=== PATIENT | female | born 1940 | race Caucasian/White ===

== ENCOUNTER 2018-03-04 01:43 | Observation (INO) ==
[2018-03-04] MEDS ORDERED: Naloxone 0.4 MG/ML INJ IVP PRN (01:53)
[2018-03-04] MEDS ORDERED: Nitroglycerin 0.4 MG TAB.SUBL SL PRN (01:58)
--- NOTE | 2018-03-04 02:03 | Internal Med History&Physical ---
Date of Encounter: 03/05/18 Time of Encounter: 02:01 Internal Medicine - H&P: HPI Chief complaint: Palpatations History of present illness: Ms. Lund is a 77 year old female with a past medical history of diabetes, hypertension, hyperlipidemia and hypothyroidism who presents with a chief complaint of palpitations. Patient states she was at home earlier this evening and felt her heart racing shortly after laying down. She did not actually check her heart rate but felt it was in the 160s based on how fast it was beating. Symptoms were associated with one episode of vomiting. However, patient denied any chest pain, diaphoresis, shortness of breath, dizziness or lightheadedness. She reports taking 2 baby aspirin and her blood pressure medication. However, given that symptoms do not improve, she subsequently reported to [facility]. She was found to be normotensive with an initial heart rate of 107. Initial EKG showed normal sinus rhythm with a ventricular rate of 97, with ST and T-wave changes in the inferior and lateral leads. Initial troponin was 0.096. Repeat troponin was 0.1. Labs were also notable for elevated creatinine of 1.64 with a baseline of 1.2. Patient received 500 mL of fluids. Patient was also noted to have a low magnesium 1.2 and received 2 g. Patient received aspirin and was started on a heparin drip due to concern for an NSTEMI. Patient is a nonsmoker and does not drink alcohol. Patient denies any significant family history of coronary artery disease. Past Med Surg Social Fam HX - Past Medical History Medical history: diabetes, hyperlipidemia, hypertension - Family History Mother Hx Family Respiratory Disorders: Yes Father History Unknown: Yes Internal Medicine - H&P: Meds GlipiZIDE 10 mg PO BID 03/04/18 [History] Lisinopril 10 mg PO BID 03/04/18 [History] Synthroid 50 mcg PO DAILY 03/04/18 [History] metFORMIN 1,000 mg PO BID 03/04/18 [History] 3 Allergy/AdvReac Type Severity Reaction Status Date / Time No Known Allergies Allergy Verified 03/04/18 02:21 All Systems PM: A 10-system review of systems was performed and is negative for pertinent findings except as documented above in the HPI. - Constitutional Constitutional: no chills, no fever(s), no night sweats - EENT Eyes: no change in vision, no discharge, no pain, no photophobia Ears: no ear discharge, no ear pain, no tinnitus Nose, mouth and throat: no dysphagia, no nasal discharge, no neck pain, no sore throat - Cardiovascular Cardiovascular ROS IM: no chest pain, no diaphoresis, no dyspnea, no lightheadedness, no palpitations, no syncope - Respiratory Respiratory: no cough, no dyspnea, no wheezing, no excessive phlegm production - Gastrointestinal Gastrointestinal: no abdominal pain, no diarrhea, no hematemesis, no hematochezia, no melena, no nausea, no vomiting - Genitourinary Genitourinary: no change in urinary stream, no dysuria, no flank pain, no hematuria - Musculoskeletal Musculoskeletal ROS IM: no numbness, no tingling - Integumentary Integumentary IM: no rash, no unusual bruising - Neurological Neurological ROS: no confusion, no convulsions, no focal weakness, no numbness, no tingling, no tremor(s) - Hematologic/Lymphatic Hematologic/Lymphatic: no easy bruising - Constitutional Exam: General: Alert and oriented Skin:Normal color, no rash, no lesions. HEENT:EOM, pupils equal, round and reactive. Cardiovascular:Normal S1 & S2, no rubs, murmurs or gallops. No JVD. Pulse regular. Lungs:Normal breath sounds, no wheezes or crackles. Abdomen:Soft, non-tender, no rigidity. Extremities:No deformity, no edema or tenderness, no joint swelling or clubbing. Neurological:Normal cognition and motor skills. Pulses:Carotid and radial pulses normal +2. Rest of the physical exam is non contributory Internal Med - H&P Results - Labs CBC & Chem 7: 03/04/18 02:50 03/04/18 02:50 - Assessment and plan (1) Palpitations Current Visit: Yes Status: Acute Assessment and plan: Patient reports palpitations. No evidence of arrhythmia. EKG shows normal sinus rhythm with ST depressions in leads 1 and 2, T-wave inversions in the inferior and lateral leads.. Concern for atypical presentation of acute coronary syndrome. Unclear if patient's hypomagnesemia contributed to presentation. Was initially found to be 1.2 at [facility]. She received 2 g prior to transfer here. We will check magnesium. Continue telemetry. Check TSH. Patient received loading dose of aspirin at [facility]. We will continue patient on heparin drip. We will keep patient nothing by mouth in case of need for further invasive intervention. Cardiology consult for the morning (2) Elevated troponin Current Visit: Yes Status: Acute Assessment and plan: Elevated troponin in the setting of palpitations and EKG changes concerning for acute coronary syndrome. EKG shows slight ST depressions in leads 1 and 2 with T-wave inversions in the inferior and lateral leads. We will continue to trend troponin. Patient currently on a heparin drip. (3) Diabetes Current Visit: Yes Status: Acute Assessment and plan: Blood glucose checks. Insulin sliding scale. Qualifiers: Diabetes mellitus type: type 2 Chronic kidney disease stage: unspecified stage Qualified Code(s): E11.22 - Type 2 diabetes mellitus with diabetic chronic kidney disease; Z79.4 - jail (current) use of insulin (4) Hypomagnesemia Current Visit: Yes Status: Acute Assessment and plan: Magnesium found to be 1.2. Patient received 2 g at [facility] prior to transfer. We will recheck magnesium. (5) Hypertension Current Visit: Yes Status: Acute Qualifiers: Hypertension type: unspecified Qualified Code(s): I10 - Essential (primary ) hypertension (6) Hypothyroidism Current Visit: Yes Status: Acute Assessment and plan: Continue home dose of Synthroid. Check TSH. Qualifiers: Hypothyroidism type: unspecified Qualified Code(s): E03.9 - Hypothyroidism , unspecified - Time Spent With Patient Total time spent is greater than 50% in coordination of care (as documented) at patient's floor/unit and/or counseling patient:
[2018-03-04] MEDS ORDERED: *HR* Heparin 5,000 UNIT/ML VIAL IVP PRN ×2 (02:54)
[2018-03-04 03:00] LABS: Basophils % 0.5 %; Eosinophils # 0.1 K/mcL (0.0-0.6); Eosinophils % 1.7 %; Hematocrit 34.5 % (35.3-44.9); Hemoglobin 11.5 g/dL (11.5-15.4); Immature Granulocytes % 0.4 % (0-4); Lymphocytes # 2.4 K/mcL (0.6-4.6); Lymphocytes % 32.2 %; Mean Corpuscular HGB Conc 33.3 g/dL (31.6-35.5); Mean Corpuscular Hemoglobin 30.8 pg (28.0-33.3); Mean Corpuscular Volume 92.5 fL (83.0-100.0); Mean Platelet Volume 9.3 fL (9.4-12.4); Monocytes # 0.6 K/mcL (0.0-1.3); Monocytes % 8.1 %; Neutrophils # 4.3 K/mcL (1.6-8.9); Platelet Count 202 K/mcL (140-400); Red Blood Count 3.73 M/mcL (3.82-4.97); Red Cell Distribution Width 12.3 % (11.5-14.5); Segmented Neutrophils % 57.1 %
[2018-03-04] MEDS ORDERED: Heparin 25,000 UNIT/500 ML D5W 25,000 UNIT/500 ML BAG IVC SCH (03:00)
[2018-03-04 03:21] LABS: Albumin 3.7 g/dL (3.5-5.7); Albumin/Globulin Ratio 1.4 (1.1-2.2); Bilirubin,Total 0.5 mg/dL (0.3-1.0); Calcium 9.1 mg/dL (8.6-10.3); Globulin 2.7 g/dL (2.4-3.5); Magnesium 1.8 mg/dL (1.6-2.6); Potassium 4.2 mEq/L (3.5-5.1); Total Protein 6.4 g/dL (6.4-8.9)
[2018-03-04 03:34] LABS: Heparin anti-factor XA UFH 0.77 IU/mL (0.30-0.70); Prothrombin Time 10.8 Seconds (9.4-12.1)
[2018-03-04 03:41] LABS: Thyroid Stimulating Hormone 8.846 mcIU/mL (0.340-5.600)
[2018-03-04] MEDS: 0.9 % Sodium Chloride 1,000 ML IVC SCH ×2 (04:12→21:27)
[2018-03-04] MEDS ORDERED: Regadenoson 0.4 MG/5 ML SYRINGE IVP ONE (10:00)
--- NOTE | 2018-03-04 13:07 | Cardiology Consult Note ---
Date of Encounter: 03/04/18 Time of Encounter: 13:06 Assessment and Plan (1) Palpitations Current Visit: Yes Status: Acute 77-year-old with a primary complaint of palpitations. Multiple risk factors for CAD. This morning, we discussed her symptoms. Patient states she has been symptom free since admission. Outside troponin minimally positive. Troponin negative here. We proceeded with a stress test given her multiple risk factors for CAD. Stress test demonstrated normal LV function, no evidence of ischemia. No arrhythmias on telemetry. Recommend aspirin 81 mg daily for primary prevention. Daily exercise, weight loss should be encouraged. Recommend echocardiogram. If no significant findings on echocardiogram, then no further inpatient cardiac testing appears to be necessary at this time. Your IM management regarding abnormal TSH. Discussion w patient/family: The assessment and plan as outlined above was discussed with the patient and/or family members who expressed understanding and agreement. All questions were answered. Thank you for involving us in the care of your patient. Please call with any questions. History of Present Illness Consult date: 03/04/18 Requesting physician: Shade Bingham Consult reason: Palpitations Chief complaint: Palpitations History of present illness: Ms. Lund is a 77 year old female with a history of diabetes and hypertension. She has no personal history of heart disease. She states she was out with her son yesterday. After a long day, she felt a sensation of palpitations. She was evaluated at an outside ER. Minimal troponin elevation noted, 0.1. Troponin here has been negative. She denies chest pain or discomfort. Telemetry demonstrates sinus rhythm. Past Med Surg Social Fam HX - Past Medical History Medical history: diabetes, hyperlipidemia, hypertension - Social History Smoking Status: Never smoker - Family History Mother Hx Family Respiratory Disorders: Yes Father History Unknown: Yes Medications and Allergies GlipiZIDE 10 mg PO BID 03/04/18 [History] Lisinopril 10 mg PO BID 03/04/18 [History] Synthroid 50 mcg PO DAILY 03/04/18 [History] metFORMIN 1,000 mg PO BID 03/04/18 [History] 3 Allergy/AdvReac Type Severity Reaction Status Date / Time No Known Allergies Allergy Verified 03/04/18 02:21 All Systems Review: The remainder of the systems were reviewed and are negative - Cardiovascular Cardiovascular: as per HPI Physical Examination General: Conversant, No Apparent Distress HEENT: Atraumatic, Normocephaly, Mucus Membranes Moist Neck: No JVD, Normal carotid pulses Cardiac: Reg Rate and Rhythm, Normal S1 and S2, No Murmur Lungs: Normal Breath Sounds, No Wheeze, Rales, Rhonchi Neuro: Alert and responsive, No focal deficits noted Abdomen: Soft, Non-Tender Skin: No rashes noted on visualized skin Musculoskeletal: No Chest Wall Tenderness Extremities: No Clubbing, No Cyanosis, No Edema Results 03/04/18 02:50 03/04/18 02:50 Lab Results 03/04/18 03/04/18 03/04/18 02:50 02:50 02:50 WBC 7.5 Hgb 11.5 Hct 34.5 L Plt Count 202 INR Sodium 138 Potassium 4.2 Chloride 106 Carbon Dioxide 23 BUN 27 H Creatinine 1.24 H Glucose 209 H Calcium 9.1 Magnesium 1.8 Total Bilirubin 0.5 AST 15 ALT 12 Alkaline Phosphatase 57 Troponin I < 0.03 TSH 8.846 H 03/04/18 03/04/18 03:14 07:58 WBC Hgb Hct Plt Count INR 1.0 Sodium Potassium Chloride Carbon Dioxide BUN Creatinine Glucose Calcium Magnesium Total Bilirubin AST ALT Alkaline Phosphatase Troponin I 0.03 TSH - Imaging and Cardiology Stress Test: report reviewed, image reviewed Echo: pending Consult Discharge Plan - Plan Referrals: Emerson Hurtado [employer] P[employer]NCING OPERATOR HAND [Primary Care Provider] -
[2018-03-04] MEDS: *HR* Heparin 5,000 UNIT/ML VIAL SQ SCH ×2 (14:03→21:26)
[2018-03-05] MEDS: *HR* Heparin 5,000 UNIT/ML VIAL SQ SCH (06:39)
[2018-03-05 06:41] VITALS: BP 136/83
[2018-03-05] MEDS ORDERED: Aspirin Enteric Coated 81 MG Tablet PO SCH (09:00)
--- NOTE | 2018-03-05 09:45 | Discharge Summary ---
- NOTES TO OUTPATIENT PROVIDER Notes to Outpatient Provider: THE PATIENT IS TO CALL ME ON 03/06 FOR ECHOCARDIOGRAM RESULTS.. HER TSH IS 8.8; MAY NEED SYNTHROID DOSE ADJUSTED.. Orders not resulted at time of discharge: Pending orders 03/04/18 01:53 ECG 12 lead ECG [ECG] Stat 03/04/18 09:50 NM jerardo perf SPECT multi [NM] Routine 03/04/18 13:13 EV echocardiogram Routine Date of Encounter: 03/05/18 Time of Encounter: 09:42 - Discharge Diagnosis (1) Palpitations Priority: Primary Status: Acute (2) Elevated troponin Priority: Primary Status: Acute (3) Diabetes Priority: Secondary Status: Chronic Qualifiers: Diabetes mellitus type: type 2 Chronic kidney disease stage: unspecified stage Qualified Code(s): E11.22 - Type 2 diabetes mellitus with diabetic chronic kidney disease; Z79.4 - local intermodal truck driver (current) use of insulin (4) Hypertension Priority: Secondary Status: Chronic Qualifiers: Hypertension type: unspecified Qualified Code(s): I10 - Essential (primary ) hypertension (5) Hypothyroidism Priority: Secondary Status: Chronic Qualifiers: Hypothyroidism type: unspecified Qualified Code(s): E03.9 - Hypothyroidism , unspecified (6) Hypomagnesemia Priority: Primary Status: Resolved Hospital course: HOSPITAL COURSE: She is a 77-year-old woman. She came to [facility] shortly after she experienced an episode of palpitation. She felt like her heart was beating around 160/min. When checked in the emergency room, her heart rate was 107. She was found to have magnesium of 1.2. She received IV magnesium sulfate. She was found to have increased creatinine of 1.64. She received IV fluids. Her troponin was borderline elevated. EKG showed normal findings. The patient was put on IV heparin. She was transferred to our hospital for specialties treatments. We presented her to cardiology. We offered her telemetry. Stress testing was negative. Echocardiogram was done today morning, the results are pending. I will troponin is normal. CONDITION AT DISCHARGE: She feels good. Denies chest pain. Denies palpitation, as well as dizziness/ lightheadedness. She has no problems with ambulation. Skin: Free of rash and discoloration. Respiratory: Normal breath sounds with no crackles and wheezes bilaterally. CV: Heart is regular with no gallop or murmur. GI: Abdomen is flat and soft with no palpable mass or visceromegaly. Neuro exam: There is no focal deficits. Normal speech, swallowing and gait. SEE DISCHARGE ORDERS/MEDICATIONS.. The patient is to call my cell phone tomorrow afternoon. I will give her the results of echocardiogram from today morning. Discharge discussed with: patient, nurse - Time Spent with Patient Total time spent providing and/or coordinating discharge services: Greater than 30 minutes (40 minutes) - Discharge Medications Home Medications: GlipiZIDE 10 mg PO BID 03/04/18 [History] Lisinopril 10 mg PO BID 03/04/18 [History] Synthroid 50 mcg PO DAILY 03/04/18 [History] metFORMIN 1,000 mg PO BID 03/04/18 [History] Allergies/Adverse Reactions: 3 Allergy/AdvReac Type Severity Reaction Status Date / Time No Known Allergies Allergy Verified 03/04/18 02:21 Date of admission: 03/04/18 01:43 Primary care physician: Emerson Hurtado CNP Consults: 03/04/18 01:59 Consult to Cardiology [CONS] Routine Comment: Consulting Provider: [facility] [place] Reason for Consult: Palpitations with elevated troponin and EKG changes Call Completed: No Discharging clinician: Derick Valiente Anticipated date of discharge: 03/05/18 - Constitutional Vitals: Temp Pulse Resp BP Pulse Ox 97.8 F 68 16 136/83 98 03/05/18 06:38 03/05/18 06:38 03/05/18 06:38 03/05/18 06:38 03/05/18 06:38 General appearance: Present: A&O X 3, pleasant, answers questions appropriately Exam: xx - Patient Status Disposition: Home, Self-Care Condition: Good Overall status at discharge: patient is back to baseline - Discharge Instructions Follow Up With: Emerson Hurtado CNP [Primary Care Provider] - (Follow-up with primary care provider) - Diet and Activity Activity: resume usual activities as tolerated Diet: diabetic diet - VTE Deep Vein Thrombosis/Pulmonary Embolism Present on Admission: No
--- NOTE | 2018-03-05 12:24 | Cardiology Progress Note ---
Date of Encounter: 03/05/18 Time of Encounter: 12:22 Assessment and Plan (1) Palpitations Status: Acute 77-year-old with a primary complaint of palpitations. Multiple risk factors for CAD. Stress test demonstrated normal LV function, no evidence of ischemia. No arrhythmias on telemetry. Recommend aspirin 81 mg daily for primary prevention. Daily exercise, weight loss should be encouraged. If no significant findings on echocardiogram, then no further inpatient cardiac testing appears to be necessary at this time. Your IM management regarding abnormal TSH. Recommend follow-up with PCP upon discharge. No obvious outstanding cardiac issues at this time. Discussion w patient/family: The assessment and plan as outlined above was discussed with the patient and/or family members who expressed understanding and agreement. All questions were answered. Thank you for involving us in the care of your patient. Please call with any questions. Subjective Principal diagnosis: Palpitations Interval history: Patient seen and examined earlier this morning. No further palpitations since admission. Denies chest pain. Results of stress test reviewed, which was negative. Echocardiogram is pending. Objective Vital Signs, Last 4 Hours Pulse Ox 03/05/18 09:43 98 General: Conversant, No Apparent Distress HEENT: Atraumatic, Normocephaly, Mucus Membranes Moist Neck: No JVD, Normal carotid pulses Cardiac: Reg Rate and Rhythm, Normal S1 and S2, No Murmur Lungs: Normal Breath Sounds, No Wheeze, Rales, Rhonchi Neuro: Alert and responsive, No focal deficits noted Abdomen: Soft, Non-Tender Skin: No rashes noted on visualized skin Musculoskeletal: No Chest Wall Tenderness Extremities: No Clubbing, No Cyanosis, No Edema Results 03/04/18 02:50 03/04/18 02:50 - Imaging and Cardiology Stress Test: report reviewed - VTE Deep Vein Thrombosis/Pulmonary Embolism Present on Admission: No Consult Discharge Plan - Plan Referrals: Emerson Hurtado, DOUGH BRAKE MACHINE OPERATOR [Primary Care Provider] - (Follow-up with primary care provider)
--- NOTE | 2018-03-06 13:15 | Electrocardiograph Report ---
[address] [place] [address] Test Date: 2018-03-04 Pat Name: Orlando Lund Department: 109 Room: 2A13 Gender: F Mental Health Technician: : 1940 Requested By: Shade Bingham Order Number: [id number] Reading MD: Poonam Howell Measurements Intervals [place] Rate: 81 P: 51 TN: 139 QRS: -7 QRSD: 99 T: 6 QT: 380 QTc: 418 Interpretive Statements SINUS RHYTHM WITH SINUS ARRHYTHMIA Electronically Signed On 03-06-2018 13:13:23 EDT by Poonam Howell
== END 2018-03-05 11:39 | disposition home or self-care (01) ==
LOC: 2ANU → SUATTDRO 01:43
PROVIDERS: ADMIT Internal Medicine; ATTEND Internal Medicine